=== PATIENT | male | born 1995 | race Hispanic/Latino ===

== ENCOUNTER 2019-02-09 20:02 | Emergency (ER) | payer OTHER ==
[~2019-02-09] VITALS: Ht 170.2 cm; Wt 92.7 kg
--- NOTE | 2019-02-09 21:17 | REP ---
RIGHT HAND: There is no evidence of an acute fracture, dislocation or intrinsic bone disease. No radiopaque foreign body is seen. IMPRESSION: No fracture or dislocation. Electronically Signed by Jc Graf MD 02/11/2019 09:14 P
[2019-02-09] MEDS ORDERED: LIDOCAINE 1% MDV 20ML VIAL IM ONE (22:00)
[2019-02-09] MEDS ORDERED: NEOSPORIN TOP OINT 15GM TOP ONE (22:30)
[2019-02-09 22:42] VITALS: BP 130/70
== END 2019-02-09 22:45 | disposition home or self-care (01) ==
LOC: M ED 20:02
DX: S61.210A Laceration without foreign body of right index finger without damage to nail, initial encounter (principal); W25.XXXA Contact with sharp glass, initial encounter; Y92.018 Other place in single-family (private) house as the place of occurrence of the external cause